=== PATIENT | female | born 2000 | race American Indian/Alaskan Native ===

== ENCOUNTER 2019-03-01 15:52 | Emergency (ER) | payer SELFPAY ==
--- NOTE | 2019-03-01 16:02 | Event Note ---
ED Screening Note Date of service: 03/01/19 Time: 15:58 ED Screening Note: 18 y/o female comes in for sores in her hair and swollen lymph nodes 2 weeks. This initial assessment/diagnostic orders/clinical plan/treatment(s) is/are subject to change based on patients health status, clinical progression and re- assessment by fellow clinical providers in the ED. Further treatment and workup at subsequent clinical providers discretion. Patient/guardian urged not to elope from the ED as their condition may be serious if not clinically assessed and managed. Initial orders include:
[2019-03-01] MEDS ORDERED: DELTASONE PO ONE (17:31)
[2019-03-01] MEDS ORDERED: BENADRYL PO ONE (17:31)
[2019-03-01] MEDS ORDERED: PEPCID PO ONE (17:31)
--- NOTE | 2019-03-01 17:44 | Emergency Department Report ---
ED General Adult HPI - General Chief complaint: Allergic Reaction Stated complaint: ALLERGIC REACTION Time Seen by Provider: 03/01/19 17:11 Source: patient Mode of arrival: Ambulatory Limitations: No Limitations - History of Present Illness Initial comments: pt is a 18 y/o aaf with who presents for allergic reaction to hair process symptoms include itching burning to scalp no fever no chills no sob no wheezing no hives. Onset/Timin -: hour(s) Location: head Radiation: non-radiation Severity scale (0 -10): 4 Quality: burning, other (itching ) Consistency: constant Improves with: none Worsens with: none Associated Symptoms: rash (erthema bula) Treatments Prior to Arrival: none - Related Data Previous Rx's Medication Instructions Recorded Last Taken Type Famotidine [Pepcid] 20 mg PO BID 7 Days #14 tablet 03/01/19 Unknown Rx Triamcinolone Aceton 0.1% (Nf) 1 applic TP BID 14 Days #1 tube 03/01/19 Unknown Rx [Kenalog (NF)] diphenhydrAMINE [Benadryl CAP] 25 mg PO Q8HR PRN 7 Days #30 03/01/19 Unknown Rx capsule predniSONE [Deltasone] 40 mg PO DAILY 7 Days #10 tablet 03/01/19 Unknown Rx Allergies Allergy/AdvReac Type Severity Reaction Status Date / Time No Known Allergies Allergy Unverified 03/01/19 15:53 ED Review of Systems ROS: Stated complaint: ALLERGIC REACTION Other details as noted in HPI Constitutional: denies: chills, fever Eyes: denies: eye pain, eye discharge, vision change ENT: denies: ear pain, throat pain Respiratory: denies: cough, shortness of breath, wheezing Cardiovascular: denies: chest pain, palpitations Endocrine: no symptoms reported Gastrointestinal: denies: abdominal pain, nausea, diarrhea Genitourinary: denies: urgency, dysuria, discharge Musculoskeletal: denies: back pain, joint swelling, arthralgia Skin: rash, pruritus Neurological: denies: headache, weakness, paresthesias Psychiatric: denies: anxiety, depression Hematological/Lymphatic: denies: easy bleeding, easy bruising ED Past Medical Hx - Medications Home Medications: Home Medications Medication Instructions Recorded Confirmed Last Taken Type Famotidine [Pepcid] 20 mg PO BID 7 Days #14 tablet 03/01/19 Unknown Rx Triamcinolone Aceton 0.1% (Nf) 1 applic TP BID 14 Days #1 tube 03/01/19 Unknown Rx [Kenalog (NF)] diphenhydrAMINE [Benadryl CAP] 25 mg PO Q8HR PRN 7 Days #30 03/01/19 Unknown Rx capsule predniSONE [Deltasone] 40 mg PO DAILY 7 Days #10 tablet 03/01/19 Unknown Rx ED Physical Exam - General Limitations: No Limitations General appearance: alert, in no apparent distress - Head Head exam: Present: atraumatic, normocephalic - Eye Eye exam: Present: normal appearance, PERRL, EOMI - ENT ENT exam: Present: normal orophraynx, mucous membranes moist, TM's normal bilaterally, normal external ear exam - Neck Neck exam: Present: normal inspection, tenderness, full ROM, lymphadenopathy. Absent: meningismus, thyromegaly - Respiratory Respiratory exam: Present: normal lung sounds bilaterally. Absent: respiratory distress, wheezes, stridor, chest wall tenderness - Cardiovascular Cardiovascular Exam: Present: regular rate, normal rhythm, normal heart sounds. Absent: systolic murmur, diastolic murmur, rubs, gallop - GI/Abdominal GI/Abdominal exam: Present: soft, normal bowel sounds. Absent: distended, tenderness, bruit, hernia - Rectal Rectal exam: Present: deferred - Extremities Exam Extremities exam: Present: normal inspection, full ROM, normal capillary refill. Absent: tenderness - Back Exam Back exam: Present: normal inspection, full ROM. Absent: tenderness, rash noted - Neurological Exam Neurological exam: Present: alert, oriented X3, CN II-XII intact, normal gait, reflexes normal - Psychiatric Psychiatric exam: Present: normal affect, normal mood - Skin Skin exam: Present: warm, dry, intact, normal color, rash, erythema (scalp ), urticaria ED Medical Decision Making - Medical Decision Making this is straight forward contact dermatitis, plan benadryl prednisone, pepcide triamcinolone oint avoid irritant return to ed if symptoms worsen pt verbalized agreement and understanding of discharge plan. Critical care attestation.: If time is entered above; I have spent that time in minutes in the direct care of this critically ill patient, excluding procedure time. ED Disposition Clinical Impression: Contact dermatitis Qualifiers: Contact dermatitis type: allergic Contact dermatitis trigger: cosmetics Qualified Code(s): L23.2 - Allergic contact dermatitis due to cosmetics Allergic reaction Qualifiers: Encounter type: initial encounter Qualified Code(s): T78.40XA - Allergy, unspecified, initial encounter Disposition: TO HOME OR SELFCARE Is pt being admited?: No Does the pt Need Aspirin: No Condition: Stable Instructions: Contact Dermatitis (ED), Urticaria (ED) Prescriptions: diphenhydrAMINE [Benadryl CAP] 25 mg PO Q8HR PRN 7 Days #30 capsule PRN Reason: itching predniSONE [Deltasone] 40 mg PO DAILY 7 Days #10 tablet Triamcinolone Aceton 0.1% (Nf) [Kenalog (NF)] 1 applic TP BID 14 Days #1 tube Famotidine [Pepcid] 20 mg PO BID 7 Days #14 tablet Referrals: L[facility]PE[facility] [place] MD RUFINO [Primary Care Provider] - 3-5 Days Forms: Work/School Release Form(ED) Time of Disposition: 17:53
[2019-03-01 18:01] VITALS: BP 128/84
== END 2019-03-01 18:00 | disposition home or self-care (01) ==
LOC: ED 15:52
DX: T78.40XA Allergy, unspecified, initial encounter (principal); L23.2 Allergic contact dermatitis due to cosmetics; Y93.89 Activity, other specified
CPT/HCPCS: 99282; J7512

== ENCOUNTER 2021-06-08 13:11 | Emergency (ER) | payer SELFPAY ==
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
[2021-06-08 14:35] VITALS: BP 137/75
== END 2021-06-08 14:43 | disposition home or self-care (01) ==
LOC: ED 13:11
DX: S00.83XA Contusion of other part of head, initial encounter (principal); Z79.899 Other long term (current) drug therapy; V87.7XXA Person injured in collision between other specified motor vehicles (traffic), initial encounter; Y93.89 Activity, other specified; Y92.488 Other paved roadways as the place of occurrence of the external cause; Y99.8 Other external cause status
CPT/HCPCS: 99281